=== PATIENT | male | born 1970 | race Caucasian/White ===

== ENCOUNTER 2025-08-20 09:57 | Emergency (ER) | payer BC, OTHER ==
[2025-08-20] MEDS: Tetracaine HCl/PF 0.5% 4 ML Bottle EYERT ONE (10:05)
== END 2025-08-20 10:20 | disposition home or self-care (01) ==
LOC: LB.ED 09:57
DX: H11.001 Unspecified pterygium of right eye (principal); I10 Essential (primary) hypertension; E11.9 Type 2 diabetes mellitus without complications; F17.200 Nicotine dependence, unspecified, uncomplicated; Z79.899 Other long term (current) drug therapy
CPT/HCPCS: 99283